=== PATIENT | female | born 2000 | race American Indian/Alaskan Native ===

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

== ENCOUNTER 2021-02-16 18:37 | Emergency (ER) | payer MEDICAID, OTHER ==
[2021-02-17] MEDS ORDERED: LIDOCAINE-MPF (1%) 10 MG/1 ML VIAL 5 ML INFILTRATI ONE (00:45)
[2021-02-17 01:47] LABS: Bacteria,Urine 1+ /HPF (Negative); Bilirubin,Urine NEG (Negative); Blood,Urine MOD (Negative); Color,Urine Yellow (Yellow); Mucus,Urine 2+ /HPF; Protein,Urine <15 mg/dL mg/dL (Negative); Urobilinogen,Urine < 2.0 mg/dL (<2.0)
[2021-02-17 01:50] LABS: HCG Qualitative,Urine Negative (Negative)
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
[2021-02-17 06:17] VITALS: BP 117/60
== END 2021-02-17 02:43 | disposition home or self-care (01) ==
LOC: ED 18:37
DX: N39.0 Urinary tract infection, site not specified (principal); Z87.891 Personal history of nicotine dependence; Z79.899 Other long term (current) drug therapy
CPT/HCPCS: 81001; 81025; 87076; 87086; 87186; 96372; 99283; J0696; J3490